=== PATIENT | male | born 1940 | race Caucasian/White ===

== ENCOUNTER → 2021-01-09 | Outpatient (CLI) | payer OTHER, BC ==
[~2021-01-09] MED LIST: ASPIRIN325 PO; BYSTOLIC 5 MG5 M1 PO; FENOFIBRATE160 MG PO; GLUCOPHAGE XR500 MG PO; HYDROCODONE-APA1 TA1 PO; LYRICA 75 MG CA75 MG PO; PROZAC20 M1 PO; TRAZODONE HCL100 MG PO; VALIUM5 MG PO; VASCEPA1 GM PO; WELCHOL 625 MG625 M1 PO
== END ==
LOC: SJCVCIMAG 10:53 → SJCVC 10:53
PROVIDERS: ATTEND Internal Medicine Cardiovascular Disease
DX: I08.0 Rheumatic disorders of both mitral and aortic valves (principal); R94.31 Abnormal electrocardiogram [ECG] [EKG]; I48.0 Paroxysmal atrial fibrillation; I25.10 Atherosclerotic heart disease of native coronary artery without angina pectoris; E78.00 Pure hypercholesterolemia, unspecified; I10 Essential (primary) hypertension; E78.1 Pure hyperglyceridemia; E11.9 Type 2 diabetes mellitus without complications; G62.9 Polyneuropathy, unspecified; Z88.0 Allergy status to penicillin; Z79.84 Long term (current) use of oral hypoglycemic drugs; Z79.899 Other long term (current) drug therapy